=== PATIENT | male | born 1960 | race Caucasian/White ===

== ENCOUNTER 2024-02-10 13:47 | Emergency (ER) | payer OTHER, SELFPAY ==
--- NOTE | 2024-02-10 13:53 | ECG_ITS ---
[facility] 2024[facility]10 Pat Name: Leo Lee Department: Room: Gender: Male [employer] Clerk: : 1960 Requested By: Juana Ye Order Number: [id number] Hendrix MD: Nae Austin M.D. Measurements Intervals [place] Rate: 99 P: 35 SC: 148 QRS: -7 QRSD: 96 T: 35 QT: 335 QTc: 431 Interpretive Statements SINUS RHYTHM No previous ECG available for comparison Electronically Signed On 02-10-2024 18:01:00 INDUSTRIAL S[employer]Y AND HEALTH SPECIALIST by Nae Austin M.D. [id number]
[2024-02-10 13:55] VITALS: BP 134/79; PULSE 97; RESP 16; TEMP 36.7; O2SAT 96; BMI 30.1
--- NOTE | 2024-02-10 15:39 | ED_ITS ---
HPI - Dizziness 2 General: Chief Complaint: Dizziness Stated Complaint: dizzy, SOB Time Seen by Provider: 02/10/24 15:35 History of Present Illness: HPI Narrative: 65-year-old male presents to the emergen cy room he initially began having symptoms 7 days ago. 3 days ago he went to his primary care doctor tested positive for COVID he continues to have hot and cold spells nonproductive cough some myalgias. He has been a little bit dizzy. His primary care provider directed him to the emergency room. Associated symptoms: Reports palpitations; Denies chest pain or chills Related Data Previous Rx's Medication Instructions Recorded albuterol sulfate 90 mcg/actuation 2 inh inhalation Q4H PRN shortness 02/10/24 aerosol inhaler of breath or wheezing #18 grams Allergies Allergy/AdvReac Type Severity Reaction Status Date / Time Penicillins Allergy ALGY-Hives Verified 02/10/24 13:59 Review of Systems 2 Const: Denies: fever(s) or chills Card: Reports: palpitations; Denies: chest pain Resp: Reports: dyspnea GI: Denies: abdominal pain : Denies: dysuria, urinary frequency or urinary urgency Musc: Denies: neck pain or back pain Skin/Breast: Denies: rash Physical Exam 2 Const: GENERAL APPEARANCE: cooperative ORIENTATION/CONSCIOUSNESS: Yes awake, Yes oriented to person, Yes oriented to place and Yes oriented to time HENMT: COMMON NORMALS: normocephalic, atraumatic and hearing grossly normal bilaterally HEAD & SCALP: normocephalic and atraumatic Resp: COMMON NORMALS: normal respiratory effort, No retractions, No use of accessory muscles and clear to auscultation bilaterally AUSCULTATION: clear to auscultation bilaterally Cardio: COMMON NORMALS: regular rate, regular rhythm and No murmurs present (Cardio) RATE: regular rate RHYTHM: regular rhythm GI: COMMON NORMALS: Soft to palpation and No hepatosplenomegaly present A USCULTATION: Yes normoactive bowel sounds PALPATION: Yes Soft to palpation, No Tenderness to palpation present (GI), No Guarding due to palpation present (GI) and Yes No hepatosplenomegaly present Extremity: COMMON NORMALS: normal to inspection, capillary refill normal, no clubbing, cyanosis or edema, no calf tenderness and no pedal edema Neuro: SENSORIUM/ORIENTATION: Yes oriented to person, Yes oriented to place and Yes oriented to time Skin: COMMON NORMALS: no rashes or lesions noted GENERAL SKIN EXAM: no rashes or lesions noted Course 2 Vital Signs: Vital signs: Vital Signs Temperature 98.1 F 02/10/24 13:55 Pulse Rate 88 02/10/24 17:10 Respiratory Rate 16 02/10/24 13:55 Blood Pressure 116/82 02/10/24 17:10 Pulse Oximetry 95 02/10/24 17:10 Oxygen Delivery Me thod Room Air 02/10/24 16:12 MDM - Dizziness Medical Decision Making Labs and imaging reviewed. Patient is stable vital signs are good there is some changes likely consistent with COVID. His oxygen saturation is appropriate for his condition. At this point recommend completing Paxlovid and using albuterol as needed. Concerned that once he completes his Paxlovid since he was escalating in his symptoms while on the Paxlovid that he may have more difficulty once he has completed it discussed this with him we will have to monitor his home O2 sats. Return if he has further problems or he is resting O2 sats below 90% Medical Records I reviewed the patient's medical records. Lab Data I reviewed the patient's lab results. 02/10/24 16:05 02/10/24 16:05 Radiology Impressions Chest X-Ray 02/10/24 15:43 IMPRESSION: Lung opacities in the left lower lung field as above. Laboratory Results WBC 10.63 10^3/uL (3.29-11.43) 02/10/24 16:05 RBC 4.91 10^6/uL (3.85-5.65) 02/10/24 16:05 Hgb 15.90 g/dL (11.27-16.99) 02/10/24 16:05 Hct 46.5 % (37-53) 02/10/24 16:05 MCV 94.7 fl (82-101) 02/10/24 16:05 MCH 32.4 pg (27-33) 02/10/24 16:05 MCHC 34.2 g/dL (30-55) 02/10/24 16:05 RDW 11.7 % (12.1-15.1) L 02/10/24 16:05 Plt Count 316 10^3/cmm (157-399) 02/10/24 16:05 MPV 10.1 fL (7.4-10.4) 02/10/24 16:05 Neut % (Auto) 68.4 % 02/10/24 16:05 Lymph % (Auto) 22.1 % 02/10/24 16:05 [place] % (Auto) 7.1 % 02/10/24 16:05 Eos % (Auto) 0.9 % 02/10/24 16:05 Baso % (Auto) 1.0 % 02/10/24 16:05 Neut # (Auto) 7.26 10^3/uL (1.8-7.7) 02/10/24 16:05 Lymph # (Auto) 2.4 10^3/uL (0.8-4.8) 02/10/24 16:05 [place] # (Auto) 0.8 10^3/uL (0.2-0.9) 02/10/24 16:05 Eos # (Auto) 0.1 10^3/uL (0.0-0.8) 02/10/24 16:05 Baso # (Auto) 0.1 10^3/uL (0.0-0.1) 02/10/24 16:05 Nucleated RBC % (auto) 0 % 02/10/24 16:05 Nucleated RBCs # 0.0 /100WBC 02/10/24 16:05 Sodium 134 mmol/L (136-145) L 02/10/24 16:05 Potassium 4.1 mmol/L (3.5-5.1) 02/10/24 16:05 Chloride 98 mmol/L (98-107) 02/10/24 16:05 Carbon Dioxide 20 mmol/L (22-29) L 02/10/24 16:05 Anion Gap 20.1 (5-19) H 02/10/24 16:05 BUN 18 mg/dL (8-23) 02/10/24 16:05 Creatinine 0.9 mg/dL (0.7-1.2) 02/10/24 16:05 GFR Calculation 85.2 mL/min (90-130) L 02/10/24 16:05 Glucose 164 mg/dL (65-115) H 02/10/24 16:05 Calculated Osmolality 284 mOsm/kg (285-295) L 02/10/24 16:05 Calcium 9.5 mg/dL (8.5-10.5) 02/10/24 16:05 Total Bilirubin 0.6 mg/dL (0.15-1.2) 02/10/24 16:05 AST 18 U/L (0-40) 02/10/24 16:05 ALT 26 U/L (0-41) 02/10/24 16:05 Alkaline Phosphatase 86 U/L (40-130) 02/10/24 16:05 Troponin T Baseline < 6 ng/L (0-15) 02/10/24 16:05 Total Protein 7.5 g/dL (6.6-8.7) 02/10/24 16:05 Albumin 4.5 g/dL (3.5-5.2) 02/10/24 16:05 Globulin 3.0 g/dL (1.3-4.6) 02/10/24 16:05 All radiology interpretation(s) finalized by discharge Discharge Plan Discharge Patient Disposition: Home Clinical Impression: COVID-19 Condition: Stable Prescriptions: New albuterol sulfate 90 mcg/actuation HFA aerosol inhaler 2 inh INHALATION Q4H PRN (Reason: shortness of breath or wheezing) Qty: 18 0RF Discharge Orders: Discharge ED (Routine); Ordered 02/10/24 Ordered By: Rufus Espinoza Referrals: Rajinder Gutierrez DO [Family Provider] - Roly Bradley [Primary Care Provider] - Discharge Diet: Usual diet Discharge Activity: Increase activity as tolerated Patient Instructions: COVID-19 (Coronavirus Disease 2019) (ED), Opioid Safety, Pain Management Activity Restrictions/Additional Instructions: Thank you for choosing [facility] for your healthcare needs today. It is very important that you follow up as instructed or that you return to the Emergency Department should you have concerns or if your condition changes or worsens in any way. Coding Level of Care Code ED Crew Attendant for Tanner Newsome
--- NOTE | 2024-02-10 15:43 | XR_ITS ---
WS: [id number] XR chest 1V portable [id number] REASON FOR EXAM: dyspnea/cough FINDINGS: Mild tortuosity of the thoracic aorta. Normal heart size. Calcified granulomas disease in both hemithoraces. Linear opacities in the left lower lung field have the appearance of atelectasis or parenchymal scarr ing. No other findings indicative of acute pulmonary parenchymal or pleural disease. Mild degenerative spondylosis in the mid and lower thoracic spine. XR/XR chest 1V portable [id number] IMPRESSION: Lung opacities in the left lower lung field as above.
[2024-02-10 16:12] VITALS: BP 131/98; PULSE 90; O2SAT 95
[2024-02-10 16:12] LABS: Basophils # 0.1 10^3/uL (0.0-0.1); Eosinophils # 0.1 10^3/uL (0.0-0.8); Eosinophils % 0.9 %; Hematocrit 46.5 % (37-53); Lymphocytes # 2.4 10^3/uL (0.8-4.8); Lymphocytes % 22.1 %; Mean Corpuscular HGB Conc 34.2 g/dL (30-55); Mean Corpuscular Hemoglobin 32.4 pg (27-33); Mean Corpuscular Volume 94.7 fl (82-101); Mean Platelet Volume 10.1 fL (7.4-10.4); Monocytes # 0.8 10^3/uL (0.2-0.9); Monocytes % 7.1 %; Neutrophils # 7.26 10^3/uL (1.8-7.7); Neutrophils % 68.4 %; Nucleated Red Blood Cells % 0 %; Platelet Count 316 10^3/cmm (157-399); Red Blood Count 4.91 10^6/uL (3.85-5.65); Red Cell Distribution Width 11.7 % (12.1-15.1); White Blood Count 10.63 10^3/uL (3.29-11.43)
[2024-02-10 16:30] LABS: Troponin(5th) Baseline < 6 ng/L (0-15)
[2024-02-10 16:31] LABS: Alanine Aminotransferase 26 U/L (0-41); Albumin Level 4.5 g/dL (3.5-5.2); Alkaline Phosphatase 86 U/L (40-130); Anion Gap 20.1 (5-19); Aspartate Amino Transferase 18 U/L (0-40); Blood Urea Nitrogen 18 mg/dL (8-23); Calcium 9.5 mg/dL (8.5-10.5); Carbon Dioxide 20 mmol/L (22-29); Chloride 98 mmol/L (98-107); Creatinine Clr Calc Pharmacy 94.3882; Glomerular Filtration Rate 85.2 mL/min (90-130); Glucose 164 mg/dL (65-115); Osmolality Calculated 284 mOsm/kg (285-295); Potassium 4.1 mmol/L (3.5-5.1); Sodium 134 mmol/L (136-145); Total Bilirubin 0.6 mg/dL (0.15-1.2); Total Protein 7.5 g/dL (6.6-8.7)
[2024-02-10 17:10] VITALS: BP 116/82; PULSE 88; O2SAT 95
== END 2024-02-10 17:18 | disposition home or self-care (01) ==
PROVIDERS: Emergency Provider Family Medicine; PCP Physician Assistant
DX: U07.1 COVID-19 (principal)
CPT/HCPCS: 36415; 71045; 80053; 84484; 85025; 93005; 99285